=== PATIENT | female | born 2000 | race Caucasian/White ===

== ENCOUNTER 2021-09-18 22:04 | Emergency (ER) | payer BC, SELFPAY ==
--- NOTE | ~2021-09-18 | XR_ITS ---
EXAMINATION: XR chest 2V Exam Date/Time: 09/18/2021 22:15 CDT HISTORY: SOB AND DIZZY X 2 HOURS Comparison: None available. RESULT: Lines, tubes, and devices: None. Lungs and pleura: Clear. Cardiomediastinal silhouette: Normal. Other: No acute osseous or upper abdominal finding. IMPRESSION: No acute cardiopulmonary process. Reviewed, dictated and finalized at location [facility].
--- NOTE | 2021-09-18 22:14 | ECG_ITS ---
Measurements Intervals [place] Rate: 92 P: 55 [place]: 172 QRS: 68 QRSD: 93 T: 20 QT: 339 QTc: 420 Interpretive Statements SINUS RHYTHM INCOMPLETE RIGHT BUNDLE BRANCH BLOCK BASELINE ARTIFACT- I, II, III, AVR, AVL, AVF BORDERLINE ECG Electronically Signed On 09-19-2021 6:37:21 CDT by Ubaldo Damian D.O.
--- NOTE | 2021-09-18 22:16 | ED.CHESTPAIN ---
HPI - Chest Pain General Chief Complaint: Chest Pain Stated Complaint: chest pain, trouble breathing History of Present Illness HPI narrative: Pt presents with sharp lower sternal CP for about 20 minutes. Pt denies injury. Pt says her back feels like she is hunched over. Pt has no history of CP. Pt has history of anxiety but has never had this. Pt feels SOB as well. Pt denies precipatating or relieving factors. Risk Factors Coronary artery disease risk factors: none Thoracic aortic dissection risk factors: none Pulmonary embolism risk factors: oral contracepetive use Related Data Allergies Allergy/AdvReac Type Severity Reaction Status Date / Time No Known Allergies Allergy Verified 03/27/20 15:10 Review of Systems Review of Systems: All systems reviewed & are unremarkable except as noted in HPI and below PMFSH Past Medical History Medical History Anxiety Depression Migraine Surgical History Surgical History H/O eye surgery (~2003) Infection Family History Family History Mother Bipolar 1 disorder Father Thyroid disease Social History Social History Smoking status: Never smoker Second hand tobacco smoke exposure: No Alcohol intake: never Exam Const: General: healthy appearing and alert Nutritional Appearance: well nourished Orientation/consciousness: patient oriented x3 Limitations: no limitations HENMT: Head: normal to inspection Chest: Chest palpation & inspection: tenderness Other: mild tenderness to palpatin lower sternal region Resp: Effort & Inspection: tachypneic Auscultation: clear to auscultation bilaterally Cardio: Rate: regular rate Rhythm: regular rhythm GI: GI Palp: Yes Soft to palpation Auscultation: normal bowel sounds Skin: General skin exam: normal color Rashes: no rashes Neuro: General: patient oriented x3, moves all extremities, no meningeal signs and no focal motor deficits Cranial nerves: Yes Nystagmus not present Speech: normal speech Gait exam (Neuro): Normal gait present Extrem: General: normal to inspection and no clubbing, cyanosis or edema Psych: Affect: Anxious affect present Attitude: cooperative Course Vital Signs Vital signs: Vital Signs Temperature 97.7 F 09/18/21 22:18 Pulse Rate 96 09/18/21 22:18 Respiratory Rate 20 09/18/21 22:18 Blood Pressure 118/68 09/18/21 22:18 Pulse Oximetry 100 09/18/21 22:18 Oxygen Delivery Room Air 09/18/21 22:18 Temperature 97.7 F 09/18/21 22:18 Pulse Rate 96 09/18/21 22:18 Respiratory Rate 20 09/18/21 22:18 Blood Pressure 118/68 09/18/21 22:18 Pulse Oximetry 100 09/18/21 22:18 Oxygen Delivery Room Air 09/18/21 22:18 MDM - Chest Pain Imaging Data Radiologist's impression: napd ECG Data EKG #1: Attestation: I personally reviewed and interpreted this ECG as follows: ECG completion date: 09/18/21 ECG completion time: 22:17 Interpretation: NSR rate 92 normal axis normal intervals no st or t wave changes Discharge Plan Discharge Prescriptions: No Action buspirone 10 mg tablet 10 mg PO TID Qty: 90 2RF citalopram [Celexa] 40 mg tablet 40 mg PO DAILY Qty: 30 2RF Follow-up/Referrals: UNKNOWN,DOCTOR [Primary Care Provider] -
[2021-09-18 22:18] VITALS: BP 118/68; PULSE 96; RESP 20; TEMP 36.5; O2SAT 100
[2021-09-18] MEDS: IBUPROFEN 400 MG TABLET 800 MG PO (22:32)
[2021-09-18] MEDS: LORazepam (*CRX) 1 MG TABLET PO (22:34)
[2021-09-18 22:46] VITALS: BP 114/66; PULSE 94; RESP 18; O2SAT 100
== END 2021-09-18 22:46 | disposition home or self-care (01) ==
PROVIDERS: Emergency Provider Emergency Medicine
DX: R07.89 Other chest pain (principal); F41.9 Anxiety disorder, unspecified
CPT/HCPCS: 71046; 93005; 99283; A9270

== ENCOUNTER 2022-09-05 23:53 | Emergency (ER) | payer OTHER, SELFPAY ==
[2022-09-05 23:55] VITALS: BP 133/76; PULSE 94; RESP 16; TEMP 36.6; O2SAT 100
--- NOTE | 2022-09-06 00:23 | ED.URI ---
HPI - URI/Sore Throat General Chief Complaint: Upper Respiratory Infection Stated Complaint: Sore Throat Source: patient Mode of arrival: ambulatory Limitations: no limitations History of Present Illness HPI Narrative: this is a 22-year-old female with no significant past medical history presents with a 2 day history of cough that is nonproductive with sore throat no ear pain or pressure no sinus congestion no shortness of breath or audible wheeze no fever chills. MD elicited complaint: cough and sore throat Onset (ago): day(s) Consistency: constant Severity: mild Related Data Home Medications Medication Instructions Recorded Confirmed buspirone 10 mg tablet 10 mg PO TID PRN Anxiety 09/06/22 09/06/22 citalopram 40 mg tablet 40 mg PO DAILY 09/06/22 09/06/22 Allergies Allergy/AdvReac Type Severity Reaction Status Date / Time No Known Allergies Allergy Verified 09/06/22 00:14 Review of Systems Review of Systems: All systems reviewed & are unremarkable except as noted in HPI and below PMFSH Past Medical History Medical History (Updated 09/06/22 @ 00:26 by Kolton Olivares MD) Anxiety Depression Migraine Surgical History Surgical History H/O eye surgery (~2003) Infection Family History Family History Mother Bipolar 1 disorder Father Thyroid disease Social History Social History Smoking status: Never smoker Second hand tobacco smoke exposure: No Alcohol intake: never Exam Const: General: healthy appearing Nutritional Appearance: well nourished Orientation/consciousness: patient oriented x3 Limitations: no limitations HENMT: Head: normal to inspection Eyes: Conjunctivae: conjunctivae normal Neck: Neck: normal visual inspection Chest: Chest palpation & inspection: normal inspection of the chest Resp: Effort & Inspection: normal respiratory effort Auscultation: clear to auscultation bilaterally Cardio: Rate: regular rate Rhythm: regular rhythm Skin: General skin exam: normal color Rashes: no rashes Neuro: General: patient oriented x3 and moves all extremities Extrem: General: normal to inspection Psych: Mental Status: mental status grossly normal Course Vital Signs Vital signs: Vital Signs Temperature 36.6 C 09/05/22 23:55 Pulse Rate 94 09/05/22 23:55 Respiratory Rate 16 09/05/22 23:55 Blood Pressure 133/76 09/05/22 23:55 Pulse Oximetry 100 09/05/22 23:55 Oxygen Delivery Room Air 09/05/22 23:55 Temperature 36.6 C 09/05/22 23:55 Pulse Rate 94 09/05/22 23:55 Respiratory Rate 16 09/05/22 23:55 Blood Pressure 133/76 09/05/22 23:55 Pulse Oximetry 100 09/05/22 23:55 Oxygen Delivery Room Air 09/05/22 23:55 MDM - URI/Sore Throat Lab Data Labs: Lab Results 09/06/22 Range/Units 00:07 Group A Strep (PCR) Pending Critical Care Time Critical Care Time Critical Care Time: No Discharge Plan Discharge Clinical Impression: Viral infection Patient Disposition: Home, Self-Care Condition: Stable Instructions: Antibiotic Form, Viral Syndrome (ED) Additional Instructions: Advised to take medicine as prescribed and follow up primary if symptoms persist or worsen. Prescriptions: New benzonatate 200 mg capsule 200 mg PO TID Qty: 20 0RF No Action citalopram 40 mg tablet 40 mg PO DAILY buspirone 10 mg tablet 10 mg PO TID PRN (Reason: Anxiety) Follow-up/Referrals: UNKNOWN,DOCTOR [Primary Care Provider] -
[2022-09-06] MEDS: prednisoLONE ORAL SOLN 30 MG/10 ML SOLUTION 50 MG PO (00:27)
[2022-09-06 01:02] VITALS: BP 119/77; PULSE 79; RESP 16; O2SAT 98
[2022-09-06 01:12] LABS: Strep Group A RT-PCR NOT DETECTED (Negative)
== END 2022-09-06 01:17 | disposition home or self-care (01) ==
PROVIDERS: Emergency Provider Emergency Medicine
DX: B34.9 Viral infection, unspecified (principal)
CPT/HCPCS: 87651; 99283; A9270